=== PATIENT | male | born 1945 | race Caucasian/White ===

== ENCOUNTER 2018-12-13 20:16 | Inpatient (IN) | payer MEDICARE, MEDICAID ==
[2018-12-13 20:43] LABS: ADD MAN DIFF? NO
[2018-12-13 20:46] LABS: WHITE BLOOD COUNT 5.9 10^3/ul (4.8-10.8)
[2018-12-13 20:46] LABS: BASOPHIL # 0.1 10^3/ul (0.0-0.1); BASOPHILS % 0.9 % (0.0-2.0); EOSINOPHILS # 0.1 10^3/ul (0.0-0.5); EOSINOPHILS % 1.7 % (0.0-7.0); HEMATOCRIT 43.6 % (42.0-52.0); HEMOGLOBIN 14.5 g/dl (14.0-18.0); LYMPHOCYTES # 0.9 10^3/ul (0.8-2.9); MEAN CORPUSCULAR HGB CONC 33.3 g/dl (32.0-37.0); MEAN CORPUSCULAR VOLUME 87.2 fl (82.0-101.0); MEAN PLATELET VOLUME 9.5 fl (7.4-10.4); MONOCYTE # 0.8 10^3/ul (0.3-0.9); MONOCYTES % 13.6 % (0.0-11.0); NEUTROPHILS % 68.1 % (39.0-77.0); PLATELET COUNT 218 10^3/UL (140-415); RED CELL DISTRIBUTION WIDTH 14.6 % (11.5-14.5)
[2018-12-13 21:17] LABS: ALANINE AMINOTRANSFERASE 16 IU/L (13-69); ALBUMIN/GLOBULIN RATIO 1.17; ALKALINE PHOSPHATASE 71 IU/L (42-121); ANION GAP 12 (5-13); ASPARTATE AMINO TRANSFERASE 34 IU/L (15-46); BILIRUBIN,INDIRECT 0.4 mg/dl (0-1.1); BILIRUBIN,TOTAL 0.4 mg/dl (0.2-1.3); BLOOD UREA NITROGEN 28 mg/dl (7-20); CALCIUM 9.3 mg/dl (8.4-10.2); CARBON DIOXIDE 19 mmol/L (21-31); CHLORIDE 103 mmol/L (97-110); CREATININE 1.02 mg/dl (0.61-1.24); GLUCOSE 101 mg/dl (70-220); POTASSIUM 4.5 mmol/L (3.5-5.1); SODIUM 134 mmol/L (135-144); TOTAL PROTEIN 7.4 g/dl (6.1-8.1)
[2018-12-13 21:28] LABS: TROPONIN-I < 0.012 ng/ml (0.000-0.120)
[2018-12-13 22:02] LABS: MAGNESIUM 1.8 mg/dl (1.7-2.5)
[2018-12-13 22:17] LABS: PROTIME 13.3 Sec (11.9-14.9)
[2018-12-13 22:26] LABS: PARTIAL THROMBOPLASTIN TIME 27.9 Sec (23.0-35.0)
[2018-12-13 22:28] LABS: D-DIMER 761.62 ng/ml (<460)
[2018-12-13] MEDS ORDERED: ONDANSETRON 4 MG INJ IV (23:30)
[2018-12-13] MEDS ORDERED: ACETAMINOPHEN 325 MG TAB PO (23:30)
[2018-12-14] MEDS ORDERED: ACETAMINOPHEN 325 MG TAB PO (02:30)
[2018-12-14] MEDS ORDERED: ONDANSETRON 4 MG INJ IV (02:30)
[2018-12-14] MEDS ORDERED: NITROGLYCERIN (SL) 0.4 MG TAB SL (02:30)
[2018-12-14] MEDS ORDERED: HYDROCODONE/APAP (5/325) TAB PO (02:30)
[2018-12-14] MEDS ORDERED: NACL 0.9% 3 ML SYG IV (02:30)
[2018-12-14] MEDS ORDERED: GLUCAGON 1 MG INJ IM (03:00)
[2018-12-14] MEDS ORDERED: GLUCOSE GEL 15 GRAM TUBE PO ×2 (03:00)
[2018-12-14] MEDS ORDERED: DEXTROSE 50% 50 ML SYRINGE IV ×2 (03:00)
[2018-12-14] MEDS ORDERED: GLUCOSE GEL 15 GRAM TUBE BUCCAL (03:00)
[2018-12-14 03:08] LABS: CREATINE KINASE 77 IU/L (23-200)
[2018-12-14 03:21] LABS: CK INDEX 1.3; CK-MB 1.03 ng/ml (0.0-2.4); TROPONIN-I < 0.012 ng/ml (0.000-0.120)
[2018-12-14] MEDS: ALBUTEROL/IPRATROPIUM (NEB) 3 ML AMP HHN (04:45)
[2018-12-14 06:43] LABS: ADD MAN DIFF? NO
[2018-12-14 06:45] LABS: BASOPHILS % 0.6 % (0.0-2.0); EOSINOPHILS # 0.1 10^3/ul (0.0-0.5); EOSINOPHILS % 2.4 % (0.0-7.0); HEMATOCRIT 42.2 % (42.0-52.0); LYMPHOCYTES # 0.8 10^3/ul (0.8-2.9); LYMPHOCYTES % 17.5 % (15.0-51.0); MEAN CORPUSCULAR HEMOGLOBIN 28.7 pg (29.0-33.0); MEAN CORPUSCULAR HGB CONC 33.2 g/dl (32.0-37.0); MEAN CORPUSCULAR VOLUME 86.5 fl (82.0-101.0); MEAN PLATELET VOLUME 9.4 fl (7.4-10.4); MONOCYTE # 0.7 10^3/ul (0.3-0.9); MONOCYTES % 15.8 % (0.0-11.0); NEUTROPHIL # 2.9 10^3/ul (1.6-7.5); NEUTROPHILS % 62.6 % (39.0-77.0); PLATELET COUNT 194 10^3/UL (140-415); RED BLOOD COUNT 4.88 10^6/ul (4.70-6.10); RED CELL DISTRIBUTION WIDTH 14.9 % (11.5-14.5)
[2018-12-14 06:45] LABS: WHITE BLOOD COUNT 4.6 10^3/ul (4.8-10.8)
[2018-12-14 07:20] LABS: HEMOGLOBIN A1C 6.3 % (0-5.9)
[2018-12-14] MEDS: INSULIN ASPART [NOVOLOG] 3 ML PEN SC ×3 (07:52→17:55)
[2018-12-14] MEDS: LOSARTAN 50 MG TAB PO (08:24)
[2018-12-14] MEDS: CLOPIDOGREL 75 MG TAB PO (08:24)
[2018-12-14] MEDS: FENOFIBRATE 145 MG TAB PO (08:25)
[2018-12-14 08:56] LABS: ALANINE AMINOTRANSFERASE 31 IU/L (13-69); ALBUMIN 3.6 g/dl (3.3-4.9); ALBUMIN/GLOBULIN RATIO 1.12; ALKALINE PHOSPHATASE 66 IU/L (42-121); ANION GAP 11 (5-13); ASPARTATE AMINO TRANSFERASE 26 IU/L (15-46); BILIRUBIN,INDIRECT 0.4 mg/dl (0-1.1); BILIRUBIN,TOTAL 0.4 mg/dl (0.2-1.3); BLOOD UREA NITROGEN 21 mg/dl (7-20); CALCIUM 8.9 mg/dl (8.4-10.2); CARBON DIOXIDE 23 mmol/L (21-31); CHLORIDE 103 mmol/L (97-110); CHOLESTEROL 156 mg/dl (100-200); CREATININE 0.83 mg/dl (0.61-1.24); GLUCOSE 94 mg/dl (70-220); HDL CHOLESTEROL 39 mg/dl (31-75); LDL CHOLESTEROL,CALCULATED 98 mg/dl; MAGNESIUM 1.8 mg/dl (1.7-2.5); POTASSIUM 3.9 mmol/L (3.5-5.1); SODIUM 137 mmol/L (135-144); TOTAL PROTEIN 6.8 g/dl (6.1-8.1); TRIGLYCERIDES 93 mg/dl (0-149)
[2018-12-14 09:21] LABS: CREATINE KINASE 80 IU/L (23-200)
[2018-12-14 09:34] LABS: TROPONIN-I 0.014 ng/ml (0.000-0.120)
[2018-12-14] MEDS: CLOTRIMAZOLE 1% 30 GM CR TOP (15:06)
[2018-12-14] MEDS ORDERED: INSULIN GLARGINE [LANTus] (100 UNITS/ML) SYG SC (20:00)
[2018-12-14] MEDS ORDERED: LOSARTAN 50 MG TAB PO ×2 (21:00)
[2018-12-14] MEDS ORDERED: ATORVASTATIN 80 MG TAB PO (21:00)
[2018-12-15] MEDS ORDERED: ACCU-CHEK XX (02:00)
== END 2018-12-14 18:25 | disposition home health service (06) | DRG 312 ==
LOC: E/R 20:16 → TEL 23:05
DX: R55 Syncope and collapse (principal); E87.2 Acidosis; I25.5 Ischemic cardiomyopathy; E11.9 Type 2 diabetes mellitus without complications; E78.5 Hyperlipidemia, unspecified; L30.9 Dermatitis, unspecified; Z95.810 Presence of automatic (implantable) cardiac defibrillator
CPT/HCPCS: 36415; 70450; 71045; 80053; 80061; 82550; 82553; 82962; 83036; 83735; 84443; 84484; 85025; 85378; 85610; 85730; 93005; 93306; 93880; 94664; 97161; 99285-25